=== PATIENT | male | born 1950 | race Caucasian/White ===

== ENCOUNTER → 2018-03-24 | Outpatient (CLI) | payer MEDICARE, OTHER ==
--- NOTE | 2018-03-24 17:07 | KCIC ---
MR of the right shoulder Indication: Right shoulder pain after injury February 12. Dislocation. Technique: Standard multiplanar sequences are obtained. Findings: Artifact: Mild motion degradation. Acromioclavicular joint: Degenerative with mild hypertrophy. Rotator cuff: * Supraspinatus-infraspinatus tendon: Tendinosis. Deep linear undersurface tear of the anterior supraspinatus tendon, about 15 mm AP diameter. This subtly extends through the bursal surface resulting in a small nonretracted full-thickness tear. * Subscapularis tendon: Partial tear * Muscle bulk: Within normal limits * Subacromial subdeltoid bursa: Mild effusion. Fluid: Small glenohumeral effusion. Glenohumeral cartilage: No acute defect or advanced DJD. Labrum: Posterosuperior tear signal within the anteroinferior labrum, likely additional tearing. Thick cordlike middle glenohumeral ligament noted, a normal variant. Biceps tendon: Intact Bones: Small Hill-Sachs fracture with marrow contusion at the posterolateral humeral head. Soft tissue: Small round structure surrounded by fluid, anterior to the proximal coracoid process, probably soft tissue rather than a loose body. Impression: 1. Small nonretracted full-thickness rotator cuff tear of the anterior supraspinatus tendon. 2. Circumferential labral tear. Small Hill-Sachs fracture. Electronically signed by: Simon Gray MD (03/24/2018 5:03 PM) [email or web address]
== END | disposition home or self-care (01) ==
LOC: KCIC MRI 15:47
PROVIDERS: ATTEND Orthopaedic Surgery
DX: S42.291A Other displaced fracture of upper end of right humerus, initial encounter for closed fracture (principal); S43.491A Other sprain of right shoulder joint, initial encounter; M75.101 Unspecified rotator cuff tear or rupture of right shoulder, not specified as traumatic; X58.XXXA Exposure to other specified factors, initial encounter; Y93.89 Activity, other specified; Y92.89 Other specified places as the place of occurrence of the external cause; Y99.8 Other external cause status
CPT/HCPCS: 73221